=== PATIENT | male | born 1990 | race Caucasian/White ===

== ENCOUNTER 2019-07-19 09:51 | Day surgery (SDC) ==
[~2019-07-19] VITALS: Ht 180.3 cm; Wt 105.0 kg
[2019-07-19 10:24] VITALS: BP 127/85
[2019-07-19] MEDS ORDERED: NONE PER PT (10:24)
[2019-07-19] MEDS ORDERED: ACETAMINOPHEN 500 MG TABLET PO ONE (10:30)
[2019-07-19] MEDS ORDERED: LACTATED RINGERS 1,000 ML IV SCH (10:30)
[2019-07-19] MEDS ORDERED: SCOPOLAMINE PATCH, 1.5MG PATCH.TD72 TD ONE (10:30)
[2019-07-19] MEDS ORDERED: GABAPENTIN 300 MG CAPSULE PO ONE (10:30)
[2019-07-19] MEDS ORDERED: EPINEPHRINE 1 MG/ML, 1ML ONE (11:58)
[2019-07-19] MEDS ORDERED: BUPIVACAINE/PF 0.25% ONE (11:58)
[2019-07-19] MEDS ORDERED: MIDAZOLAM 1 MG/ML, 2ML ONE (12:20)
[2019-07-19] MEDS ORDERED: FENTANYL PF 250 MCG/5ML ONE (12:21)
[2019-07-19] MEDS ORDERED: DEXAMETHASONE 4 MG/ML, 1ML ONE (12:22)
[2019-07-19] MEDS ORDERED: PROPOFOL 10 MG/ML, 20ML ONE (12:22)
[2019-07-19] MEDS ORDERED: CEFAZOLIN 1,000 MG ONE (12:23)
[2019-07-19] MEDS ORDERED: ONDANSETRON 2MG/ML, 2ML ONE (13:20)
[2019-07-19] MEDS ORDERED: KETOROLAC 30 MG/1 ML ONE (13:22)
[2019-07-19] MEDS ORDERED: ONDANSETRON ODT 8 MG PO PRN (14:00)
[2019-07-19] MEDS ORDERED: LABETALOL 5MG/ML, 20ML IV PRN (14:00)
[2019-07-19] MEDS ORDERED: DIAZEPAM 5 MG/ML, 2ML IVPush PRN (14:00)
[2019-07-19] MEDS ORDERED: FENTANYL PF 100 MCG/2ML IV PRN (14:00)
[2019-07-19] MEDS ORDERED: OXYcodone 5 MG/5 ML ORAL.SOL UDC PO PRN (14:00)
[2019-07-19] MEDS ORDERED: MEPERIDINE/PF 25MG/ML,1ML IVPush PRN (14:00)
[2019-07-19] MEDS ORDERED: hydrALAzine 20 MG/ML, 1ML IV PRN (14:00)
[2019-07-19] MEDS ORDERED: HALOPERIDOL 5 MG/ML IV PRN (14:00)
[2019-07-19] MEDS ORDERED: PROMETHAZINE 25 MG/ML, 1ML IV PRN (14:00)
[2019-07-19] MEDS ORDERED: EPHEDRINE 50 MG/ML, 1ML IVPush PRN (14:00)
[2019-07-19] MEDS ORDERED: ALBUTEROL SULFATE 2.5 MG/3 ML NPPB PRN (14:00)
[2019-07-19] MEDS ORDERED: PROMETHAZINE 12.5 MG SUPP PR PRN (14:00)
[2019-07-19] MEDS ORDERED: MIDAZOLAM 1 MG/ML, 2ML IV PRN (14:00)
[2019-07-19] MEDS ORDERED: HYDROmorphone 2 MG/ML, 1ML IVPush PRN (14:00)
[2019-07-19] MEDS ORDERED: ONDANSETRON 2MG/ML, 2ML IV PRN (14:00)
[2019-07-19] MEDS ORDERED: FENTANYL PF 100 MCG/2ML ONE (14:13)
[2019-07-19] MEDS ORDERED: MEPERIDINE/PF 25MG/ML,1ML ONE (14:13)
[2019-07-19] MEDS ORDERED: OXYcodone 5 MG/5 ML ORAL.SOL UDC ONE (14:13)
[2019-07-19] MEDS ORDERED: DIAZEPAM 5 MG TABLET PO ONE (15:30)
== END 2019-07-19 17:25 | disposition home or self-care (01) ==
LOC: OUT 09:51
PROVIDERS: ATTEND Orthopaedic Surgery
DX: S46.211A Strain of muscle, fascia and tendon of other parts of biceps, right arm, initial encounter (principal); F15.90 Other stimulant use, unspecified, uncomplicated; X50.0XXA Overexertion from strenuous movement or load, initial encounter; Y93.89 Activity, other specified; Y92.89 Other specified places as the place of occurrence of the external cause; Y99.8 Other external cause status
CPT/HCPCS: 24342; 64415; 73070; C1713; J0171; J0690; J1100; J1885; J2175; J2250; J2405; J2704; J3010; J3490; J7120; 76000